=== PATIENT | female | born 1960 | race Caucasian/White ===

== ENCOUNTER 2022-12-11 08:11 | Outpatient (CLI) | payer BC, SELFPAY ==
--- NOTE | 2022-12-11 09:34 | W.ANESCHARGE ---
Anesthesia Charges Start Date/Time Anesthesia Start Date: 12/11/22 Anesthesia Start Time: 08:58 Stop Date/Time Anesthesia Stop Date: 12/11/22 Anesthesia Stop Time: 09:35
--- NOTE | 2022-12-11 09:39 | W.ANESCHARGE ---
Anesthesia Charges Start Date/Time Anesthesia Start Date: 12/11/22 Anesthesia Start Time: 08:58 Stop Date/Time Anesthesia Stop Date: 12/11/22 Anesthesia Stop Time: 09:35
== END 2022-12-11 08:12 | disposition home or self-care (01) ==
LOC: OP CLINIC 08:14
PROVIDERS: PCP Physician Assistant Medical; Visit Provider Internal Medicine Gastroenterology
DX: Z12.11 Encounter for screening for malignant neoplasm of colon (principal); K62.89 Other specified diseases of anus and rectum; K63.5 Polyp of colon
CPT/HCPCS: 00811; 45380; 88305; J2704

== ENCOUNTER 2023-04-11 10:30 | Outpatient (RCR) | payer BC, SELFPAY | END 2023-05-15 10:26 | disposition home or self-care (01) | PROVIDERS: PCP Physician Assistant Medical; Visit Provider Physician Assistant Medical | DX: K62.89 Other specified diseases of anus and rectum (principal); M62.89 Other specified disorders of muscle; N39.46 Mixed incontinence; K59.00 Constipation, unspecified; R15.9 Full incontinence of feces; Z51.89 Encounter for other specified aftercare | CPT/HCPCS: 97110; 97112; 97162; 97535 ==

== ENCOUNTER 2023-06-28 18:52 | Emergency (ER) | payer BC, SELFPAY ==
[2023-06-28 19:04] VITALS: BP 149/84; PULSE 89; RESP 18; TEMP 36.8; O2SAT 96
--- NOTE | 2023-06-28 19:30 | XR_ITS ---
Patient: WILLA HERRERA Facility:?[facility] Patient ID:?[id number] Site Patient ID:?[id number] Site :?[id number] Study:?XRay-Chest 2V-06/28/2023 7:41:36 PM Ordering Physician:MAXINE Final Report: INDICATION: Cough. TECHNIQUE: Chest 2 views. COMPARISON: None. FINDINGS: Cardiovascular and mediastinum: Cardiomediastinal silhouette is within normal limits Lungs and pleural spaces: Lungs are clear. No sign of pleural effusion. No pneumothorax. Bones and soft tissues: No significant findings. IMPRESSION: No acute or significant findings. Dictated by Tommie Blue MD @ 06/28/2023 7:50:47 PM Signed by:?Tommie Blue MD @06/28/2023 7:50:47 PM (Electronic Signature)
[2023-06-28] MEDS: IPRAT-ALBUT 0.5-2.5 MG/3 ML NEB 1 NEB IH (19:50)
--- NOTE | 2023-06-28 20:51 | ED_ITS ---
HPI - General Adult General Date Seen: 06/28/23 Chief complaint: Cough Stated complaint: Low grade fever, persist cough, neb not helping Time Seen by Provider: 06/28/23 19:00 Source: patient Mode of arrival: ambulatory Limitations: no limitations History of Present Illness HPI narrative: Patient is a 63-year-old woman with underlying asthma and seasonal allergies. She uses a nonsedating antihistamine daily although she forgot to take it yesterday, and she has albuterol inhalers and some neb solution although she feels that is likely , at home. The past month she said she has had a cough, it feels like it has gotten worse over the past few days. She has been wheezy, generally speaking her albuterol inhaler has been helping the past couple of days it does not feel like it is helping as much. She has run temperatures in the 99 range, she has had some shortness of breath and chest tightness associated with her cough. She has not had any pleuritic chest pain, lower extremity swelling or pain. No previous hospitalizations related to asthma. She does not smoke. Related Data Home Medications Medication Instructions Recorded Confirmed albuterol sulfate 90 mcg/actuation 2 puff inhalation Q4-6H PRN 09/14/21 06/08/23 aerosol inhaler cyclobenzaprine 10 mg tablet 10 mg PO .Bedtime as needed PRN 09/14/21 06/08/23 naproxen sodium 220 mg tablet 220 mg PO BID 09/14/21 06/08/23 fexofenadine 60 mg tablet 60 mg PO BID PRN 01/31/22 06/08/23 montelukast 10 mg tablet 10 mg PO QDAY PRN 01/31/22 06/08/23 Previous Rx's Medication Instructions Recorded albuterol sulfate 2.5 mg/3 mL 2.5 mg (3 mL) inhalation Q4H PRN 06/28/23 (0.083 %) solution for nebulization #75 mL codeine 10 mg-guaifenesin 100 mg/5 5 ml PO Q6H PRN #120 mL 06/28/23 mL oral liquid (Guaifenesin AC) Allergies Allergy/AdvReac Type Severity Reaction Status Date / Time penicillin V Allergy Mild Unknown Verified 06/08/23 18:03 Review of Systems Status of ROS: Reports: 10 or more systems reviewed and unremarkable except as noted in History and below [facility] Medical History Seasonal allergies ?J30.2 - Other seasonal allergic rhinitis (ICD-10) Asthma ?J45.909 - Unspecified asthma, uncomplicated (ICD-10) Surgical History S/P right knee arthroscopy (08/12/99) ?Z98.890 - Other specified postprocedural states (ICD-10) S/P right knee arthroscopy (05/10/11) ?Z98.890 - Other specified postprocedural states (ICD-10) S/P left knee arthroscopy (09/22/20) ?Z98.890 - Other specified postprocedural states (ICD-10) History of trigger finger ?Z87.39 - Personal history of other diseases of the musculoskeletal system and connective tissue (ICD-10) History of arthroscopy of left knee (01/20/10) ?Z98.890 - Other specified postprocedural states (ICD-10) History of laparoscopy ?Z98.890 - Other specified postprocedural states (ICD-10) History of arthroscopy of right knee (07/09/19) ?Z98.890 - Other specified postprocedural states (ICD-10) History of tonsillectomy and adenoidectomy ?Z90.89 - Acquired absence of other organs (ICD-10) History of appendectomy ?Z90.49 - Acquired absence of other specified parts of digestive tract (ICD-1 0) Family History Father Small bowel cancer Mother Heart problem Maternal Grandmother Heart problem Social History Smoking Status: Never smoker Exam Narrative: Exam Narrative: Vital signs as noted above. In general, an alert, well-appearing patient. Head: Normocephalic, atraumatic. Eyes: Pupils are equal reactive. Extraocular movements are full. Conjunctivae are normal. ENT: Mucous membranes are moist. Throat is normal. Neck: Supple without lymphadenopathy. Heart: Regular rate and rhythm. No murmur or rub. Lungs: Diffuse bilateral wheezes, no increased work of breathing. Abdomen: Soft and nontender. No organomegaly. Extremities: Well perfused. No edema. No calf tenderness. Pulses intact. Neurologic: Patient is alert and oriented to person and place. Speech is fluent. Face is symmetric. Moves all extremities equally. Affect: Normal. Skin: Warm and dry. Well perfused. Const: Vital Signs, click to edit/add: Vital Signs - 24 hr 06/28/23 19:04 Temperature 98.3 F Pulse Rate [Right Pulse Oximeter] 89 Respiratory Rate 18 Blood Pressure [Ri ght Upper Arm] 149/84 H Pulse Oximetry 96 Oxygen Delivery Me thod Room Air Documenting provider has reviewed patient's vital signs: yes Course Course ED Course: I did do a chest x-ray which by my review is negative. Final radiology read is negative. She had a DuoNeb here, wheezing is resolved at this time and she feels that her breathing is easier. Discussed that there is likely not a role for antibiotics here. I do think she might benefit from some prednisone. I gave her a new prescription for albuterol neb solution, she can continue to use these as needed. I also gave her some Robitussin with codeine for use with nighttime cough. Return for acute worsening new symptoms such as high fever, significant shortness of breath etcetera. See primary care doctor if not improving over the next week. Vital Signs Vital signs: Initial Vital Signs Temperature 98.3 F 06/28/23 19:04 Temperature Source Temporal Artery Scan 06/28/23 19:04 Pulse Rate 89 06/28/23 19:04 Respiratory Rate 18 06/28/23 19:04 Blood Pressure 149/84 H 06/28/23 19:04 Blood Pressure Mean 105 06/28/23 19:04 Blood Pressure Position Supine 06/28/23 19:04 Pulse Oximetry 96 06/28/23 19:04 Oxygen Delivery Method Room Air 06/28/23 19:04 Vital Signs Temperature 98.3 F 06/28/23 19:04 Pulse Rate 89 06/28/23 19:04 Respiratory Rate 18 06/28/23 19:04 Blood Pressure 149/84 H 06/28/23 19:04 Pulse Oximetry 96 06/28/23 19:04 Oxygen Delivery Method Room Air 06/28/23 19:04 Temperature 98.3 F 06/28/23 19:04 Pulse Rate 89 06/28/23 19:04 Respiratory Rate 18 06/28/23 19:04 Blood Pressure 149/84 H 06/28/23 19:04 Pulse Oximetry 96 06/28/23 19:04 Oxygen Delivery Method Room Air 06/28/23 19:04 Medications Administered Medications: Discontinued Medications Generic Name Dose Route Start Last Admin Trade Name Freq PRN Reason Stop Dose Admin Albuterol/Ipratropium 1 neb 06/28/23 19:30 06/28/23 19:50 Iprat-Albut 0.5-2.5 Mg/3 Ml Neb IH 06/28/23 19:31 1 neb ONCE ONE Administration Discharge Plan Discharge Clinical Impression: Bronchitis Patient Disposition: Home, Self-Care Condition: Improved Instructions: Acute Bronchitis (ED) Additional Instructions: Prednisone as prescribed. Continue with inhaler/nebulizer as needed. Cough syrup if needed. If no improvement over the next week, follow up with primary care for recheck, return to the ER at any time for acute worsening. Prescriptions: New codeine-guaifenesin [Guaifenesin AC] 10-100 mg/5 mL liquid 5 ml PO Q6H PRNQty: 120 0RF albuterol sulfate 2.5 mg /3 mL (0.083 %) solution for nebulization 2.5 mg inhalation Q4H PRNQty: 75 0RF No Action naproxen sodium 220 mg tablet 220 mg PO BID cyclobenzaprine 10 mg tablet 10 mg PO .Bedtime as needed PRN albuterol sulfate 90 mcg/actuation HFA aerosol inhaler 2 puff inhalation Q4-6H PRN fexofenadine 60 mg tablet 60 mg PO BID PRN montelukast 10 mg tablet 10 mg PO QDAY PRN Follow Up/Referrals: Armida Pittman [facility] [Primary Care Provider] - Stand Alone Forms: [facility] Info Instructions
== END 2023-06-28 20:26 | disposition home or self-care (01) ==
LOC: ED 20:20
PROVIDERS: Emergency Provider Emergency Medicine; PCP Physician Assistant Medical
DX: J20.9 Acute bronchitis, unspecified (principal)
CPT/HCPCS: 71046; 94640; 99283; 99284

== ENCOUNTER 2023-07-16 14:00 | Outpatient (RCR) | payer BC, SELFPAY | END 2023-10-12 14:56 | disposition home or self-care (01) | PROVIDERS: PCP Physician Assistant Medical; Visit Provider Physician Assistant Medical | DX: M25.512 Pain in left shoulder (principal); S49.92XA Unspecified injury of left shoulder and upper arm, initial encounter; Z51.89 Encounter for other specified aftercare | CPT/HCPCS: 97110; 97140; 97161 ==